=== PATIENT | female | born 1975 | race Two or more races ===

== ENCOUNTER 2018-07-31 21:57 | Emergency (ER) | payer OTHER ==
[2018-07-31 22:03] VITALS: BP 121/75
[2018-07-31] MEDS ORDERED: SKIN ADHESIVE (DERMABOND) 1 EACH TP ONE (22:06)
--- NOTE | 2018-07-31 22:15 | EDPHY ---
H & P Stated Complaint: lac over left eye Time Seen by Provider: 07/31/18 22:04 HPI/ROS: Chief Complaint: laceration above left eye HPI: 42-year-old woman sustained a laceration above her left eye when she stood up and struck her face on the edge of a open microwave door. She did not lose consciousness. Has small amount of bleeding. Has a mild headache. No nausea or vomiting. No vision changes. She is up-to-date in her tetanus ROS: 10 systems were reviewed and were negative except those elements noted in the HPI. PMH: Denies Social History: No smoking, no alcohol, no recreational drug use Family History: non-contributory Physical Exam: General: Awake, alert, no acute distress HEENT: There is a 5 mm laceration on the lateral orbital ridge on the left just below the eyebrow. There is minimal soft tissue swelling. No active bleeding. Eyes: Atraumatic, extraocular movements are intact. Pupils equal round reactive light accommodation. Neck: Nontender, full range of motion of pain - Personal History LMP (Females 10-55): Now Current Tetanus/Diphtheria Vaccine: Yes Current Tetanus Diphtheria and Acellular Pertussis (TDAP): Yes - Medical/Surgical History Hx Asthma: No Hx Chronic Respiratory Disease: No Hx Diabetes: No Hx Cardiac Disease: No Hx Renal Disease: No Hx Cirrhosis: No Hx Alcoholism: No Hx HIV/AIDS: No Hx Splenectomy or Spleen Trauma: No Other PMH: no medical history - Social History Smoking Status: Never smoked Constitutional: Initial Vital Signs Temperature (C) 36.5 C 07/31/18 22:01 Heart Rate 75 07/31/18 22:01 Respiratory Rate 16 07/31/18 22:01 Blood Pressure 121/75 H 07/31/18 22:01 O2 Sat (%) 97 07/31/18 22:01 O2 Delivery Mode Room Air Allergies/Adverse Reactions: No Known Allergies Allergy (Unverified 07/31/18 22:00) Home Medications: Medication Instructions Recorded NK [No Known Home Meds] 07/31/18 Medical Decision Making Procedures: Procedure: Laceration repair with skin glue. The 5 mm laceration on the left orbital ridge. The wound was cleaned and explored to its base with a gloved finger. There were no deep structures involved. The wound was repaired with tissue adhesive. The procedure was performed by myself. Departure - Departure Disposition: Home, Routine, Self-Care Clinical Impression: Laceration Condition: Good Instructions: Facial Laceration (ED), Skin Adhesive Care (ED) Additional Instructions: Follow up with workman's Comp for any concerns. Referrals: Work Comp Referral [facility] [Outside] - As per Instructions
== END 2018-07-31 22:25 | disposition home or self-care (01) ==
PROC: 08QPXZZ Repair Left Upper Eyelid, External Approach (ICD-10-PCS; principal; 2018-07-31)
DX: S01.112A Laceration without foreign body of left eyelid and periocular area, initial encounter (principal); W22.09XA Striking against other stationary object, initial encounter; Y92.9 Unspecified place or not applicable; Y99.9 Unspecified external cause status; Y93.9 Activity, unspecified